=== PATIENT | female | born 1995 | race Caucasian/White ===

== ENCOUNTER 2017-03-16 03:39 | Emergency (ER) | payer MEDICAID ==
--- NOTE | ~2017-03-16 | ER ---
PAT[facility]'S NAME: [facility] AGE: 21 Y [address] ROOM: [place] [id number] LOCATION: [facility] ADMIT DATE: 03/16/2017 ER/Outpatient Report DISCHARGE DATE: 03/16/2017 FAMILY PHYSICIAN: , ZAIRA ATTENDING PHYSICIAN: Eric Bui Time of Arrival: 0341 hours. Time of Evaluation: 0359 hours. CHIEF COMPLAINT: Low back pain. HISTORY OF PRESENT ILLNESS: The patient is a 21-year-old female who presents to the emergency department today with a chief complaint of low back pain. The patient is 25 weeks . She is a G2, P1. She reports that she has not had any complications with the . She reports at 11:00 p.m. last night, she had progressively worsening low back pain. It is on both sides. It does radiate down into both legs. The patient does have a history of sciatic in the left. She did take Flexeril at 12:30 with some mild relief. She denies any fevers or chills. She is having some nausea. No vomiting. Denies any diarrhea or constipation. Denies any vaginal bleeding or vaginal discharge. No burning with urination. No chest pain. No shortness of breath. The patient reports she is out of her Flexeril. PAST MEDICAL HISTORY: None. No history of diabetes or gestational diabetes. PAST SURGICAL HISTORY: None. SOCIAL HISTORY: The patient smokes half pack per day. Denies any alcohol or illicit drug use. ALLERGIES: BACTRIM, SULFA AND NAPROXEN. MEDICATIONS: 1. vitamins. 2. Flexeril. PRIMARY CARE DOCTOR: None. REVIEW OF SYSTEMS: PATIENT'S NAME: CHADWICK, [facility] AGE: 21 Y [address] ROOM: [place], [place] [address] LOCATION: [facility] ADMIT DATE: 03/16/2017 ER/Outpatient Report DISCHARGE DATE: 03/16/2017 FAMILY PHYSICIAN: ZAIRA BETTS ATTENDING PHYSICIAN: Eric Bui All systems are reviewed by myself are negative with the exception of those discussed in the HPI and past medical history. PHYSICAL EXAMINATION: VITAL SIGNS: Weight 68.7 kg. Blood pressure 107/60, pulse 88, respiratory rate 16, temperature 97.6, oxygen saturation 99% on room air. heart tones are 136-142. GENERAL: The patient is a 21-year-old female, well developed, well nourished, in no acute distress. HEENT: Normocephalic, atraumatic. Pupils equal, round, and reactive to light. NECK: Supple. There is no nuchal rigidity. CARDIOVASCULAR: Regular rate and rhythm. No murmurs, rubs, or gallops. LUNGS: Clear to auscultation bilaterally. No wheezes, rales, or rhonchi. ABDOMEN: Soft, gravid. No rebound, rigidity or guarding. Positive bowel sounds. MUSCULOSKELETAL: The patient moves all 4 extremities. She has some bilateral paraspinal musculature tenderness to palpation. SKIN: Warm and dry. LABORATORY DATA AND X-RAYS: Urinalysis are unremarkable except for 5 ketones. IMPRESSION: 1. Acute lumbar back pain suspect musculoskeletal. 2. Initial visit. EMERGENCY DEPARTMENT COURSE: The patient was brought back to the examination room. Seen and evaluated by myself. Urinalysis obtained as described above. It is unremarkable. The patient was given a gram of Tylenol as well as 40 mg of prednisone. I discussed I would like to follow up with primary care doctor in 2-3 days. She does report she plans on following up with [facility]. I have discussed the return to care instructions including loss of bowel or bladder or saddle anesthesia or any other concerns to return to the emergency department as soon as possible. The patient denies having any symptoms at this time. The patient is agreeable and boyfriend is agreeable. They are without further questions at this time. DISPOSITION: The patient discharged home in good condition. PATIENT'S NAME: TEO CHADWICK [facility] AGE: 21 Y [address] ROOM: [place], [place] [address] LOCATION: ED ADMIT DATE: 03/16/2017 ER/Outpatient Report DISCHARGE DATE: 03/16/2017 FAMILY PHYSICIAN: PHYSICIAN, NO ATTENDING PHYSICIAN: Eric Bui DO KJR/jakub /[id number] d: 03/16/17 0447 t: 03/17/17 06, OUTPATIENT REPORT
[2017-03-16 03:53] LABS: BILIRUBIN URINE NEGATIVE (NEGATIVE); BLOOD URINE NEGATIVE /UL (NEGATIVE); COLOR URINE YELLOW (YELLOW); GLUCOSE URINE NEGATIVE (NEGATIVE); KETONE URINE 5 mg/dL (NEGATIVE); LEUKOCYTES URINE NEGATIVE /UL (NEGATIVE); NITRITE URINE NEGATIVE (NEGATIVE); PROTEIN URINE NEGATIVE (NEGATIVE); SPEC GRAVITY URINE 1.005 (1.003-1.035); TURBIDITY URINE CLEAR (CLEAR); UROBILINOGEN URINE NORMAL (NORMAL)
== END 2017-03-16 04:12 | disposition disaster alternative care site (69) ==
LOC: GMED 03:39
PROVIDERS: Emergency Medicine
DX: O99.89 Other specified diseases and conditions complicating pregnancy, childbirth and the puerperium (principal); M54.5 Low back pain; O99.332 Smoking (tobacco) complicating pregnancy, second trimester; F17.210 Nicotine dependence, cigarettes, uncomplicated; Z79.899 Other long term (current) drug therapy; Z88.1 Allergy status to other antibiotic agents; Z88.8 Allergy status to other drugs, medicaments and biological substances; Z88.2 Allergy status to sulfonamides; Z3A.25 25 weeks gestation of pregnancy
CPT/HCPCS: J7512

== ENCOUNTER 2017-04-17 00:10 | Observation (INO) | payer MEDICAID ==
[~2017-04-17] VITALS: Ht 157.5 cm; Wt 67.3 kg
--- NOTE | ~2017-04-17 | HP ---
PATIENT'S NAME: TEO GUTIERRES [facility] AGE: 21 Y [address] ROOM: [place] [address] LOCATION: [facility] ADMIT DATE: 04/17/2017 History & Physical DISCHARGE DATE: 04/17/2017 FAMILY PHYSICIAN: Sascha Prater MD ATTENDING PHYSICIAN: Aydin Adamson DATE OF SERVICE: CHIEF COMPLAINT: "I am having contractions." HISTORY OF PRESENT ILLNESS: Ms. Gutierres is a 21-year-old, G 3, P 1, at 29 and 5/7th weeks gestation, who presents to the Labor and Delivery Unit at [facility] for contractions and lower abdominal pain. 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 She was having some lower abdominal pain that started around 2230 p.m. the night before admission. She states that the pain is in the lower part of her abdomen. It is more on the right side. It does not radiate. She has complained of some contractions as well. No loss of fluid. No bleeding. Baby is still moving. No cough, fevers, chills, or shortness of breath. No nausea, vomiting, or diarrhea. No extremity swelling. No rashes. She has otherwise felt pretty well. REVIEW OF SYSTEMS: Negative except for those noted as above in the HPI. ALLERGIES: NO KNOWN DRUG ALLERGIES. PAST MEDICAL HISTORY: 1. Tobacco abuse. 2. History of induced . PAST SURGICAL HISTORY: Induction of labor resulting in a vaginal delivery. FAMILY HISTORY: Noncontributory. SOCIAL HISTORY: The patient just moved up from [place]. She sees Dr. Sascha Prater as her primary care provider. She smokes about half a pack per day and has done so since age of 14. She reports drinking alcohol prior to , but none since. I asked her about drug use and the patient tells me that her parents have a problem with drugs, but she never has. She does have a significant PATIENT'S NAME: TEO GUTIERRES [facility] AGE: 21 Y [address] ROOM: [place] [address] LOCATION: [facility] ADMIT DATE: 04/17/2017 History & Physical DISCHARGE DATE: 04/17/2017 FAMILY PHYSICIAN: Sascha Prater MD ATTENDING PHYSICIAN: Aydin Adamson other who is with her today. PHYSICAL EXAMINATION: VITAL SIGNS: Reviewed. GENERAL: A pleasant, interactive adult female who does not appear to be in any pain or distress. HEAD: Normocephalic, atraumatic. Eyes, conjunctivae clear. Sclerae white. ENT: Mucous membranes are moist. ABDOMEN: Gravid, soft, nontender, and nondistended. GENITALIA: Hong stage 5. Cervix appears to be normal. There is significant amount of discharge present in the vaginal vault. There does not appear to be any bleeding or significant pooling in the vaginal vault. heart rate is reactive NST. Category 1. There are a few occasional contractions, but they do space out over time. IMPRESSION: A 21-year-old, G3, P1, at 29 and 5/7th weeks gestation with contractions. 1. Contractions. Technically, the patient does not meet criteria for labor as she has not had a cervical change though she did have a cervical exam of 2, posterior -3, 25%. I actually think that this may be little bit more of a cupping of the outer cervix. An initial ultrasound in [place] actually showed a cervical length of 3.8 cm. Today, it is 3.7 cm. Appears to be closed on the official report. The patient does have a grade 3 placenta. Number of other tests including gonorrhea and chlamydia were negative. Urinalysis negative. Urine drug screen was negative. Genital culture as well as group B strep were obtained, but were not yet reported back. Since the patient has a closed cervix on ultrasound, we will go ahead and let her go home. Her contractions ultimately did space out after she received about 2 L of normal saline. We will have her follow up with primary care provider within 5 days. She already has an appointment scheduled on 04/22/2017, which I agree with. 2. Tobacco Abuse. The patient continues to smoke about half a pack per day and does have a grade 3 placenta. Encouraged the patient that she needs to quit. 3. Abdominal pain, likely round ligament pain. We will have her on a work restriction for 15 pounds until she is seen on 04/22/2017. If her job cannot accommodate that will put her off work. 4. Fluids. The patient received 2 L normal saline. Electrolytes not yet checked. 5. Diet. The patient was allowed to be general diet. RECOMMENDATIONS: 1. Followup with Dr. Sascha Prater on 04/22/2016. 2. Quit smoking. PATIENT'S NAME: TEO GUTIERRES [facility] AGE: 21 Y [address] ROOM: [place] [address] LOCATION: [facility] ADMIT DATE: 04/17/2017 History & Physical DISCHARGE DATE: 04/17/2017 FAMILY PHYSICIAN: Sascha Prater MD ATTENDING PHYSICIAN: Aydin Adamson 3. If there is any worsening of condition or repeat contractions, the patient needs to be seen in the Labor and Delivery Unit or the [facility]. AYDIN ADAMSON MD BAB/modl /[id number] P D: [id number] T: [id number] HISTORY & PHYSICAL
[2017-04-17] MEDS ORDERED: PRENATAL 1+1)(P1 TAB PO (00:58)
[2017-04-17] MEDS ORDERED: FLEXERIL10 MG PO (01:01)
[2017-04-17] MEDS ORDERED: ZANTAC (NON-FO150 MG PO (01:02)
[2017-04-17 03:40] LABS: BILIRUBIN URINE NEGATIVE (NEGATIVE); BLOOD URINE NEGATIVE /UL (NEGATIVE); COLOR URINE YELLOW (YELLOW); GLUCOSE URINE NEGATIVE (NEGATIVE); KETONE URINE 5 mg/dL (NEGATIVE); LEUKOCYTES URINE NEGATIVE /UL (NEGATIVE); NITRITE URINE NEGATIVE (NEGATIVE); PROTEIN URINE NEGATIVE (NEGATIVE); UROBILINOGEN URINE NORMAL (NORMAL)
[2017-04-17 03:41] LABS: TURBIDITY URINE CLEAR (CLEAR)
[2017-04-17 03:58] LABS: BARBITURATE NEGATIVE (NEGATIVE); OPIATES NEGATIVE (NEGATIVE)
[2017-04-17 03:59] LABS: AMPHETAMINE NEGATIVE (NEGATIVE); COCAINE NEGATIVE (NEGATIVE)
== END 2017-04-17 11:25 | disposition disaster alternative care site (69) ==
LOC: GOBM 00:10 → GOBS 00:10 → GOBM 00:11 → GOBS 00:11 → GOBM 10:11 → GOBS 10:11 → GOBM 11:25 → GOBS 11:25
PROVIDERS: ADMIT Family Medicine
DX: O60.03 Preterm labor without delivery, third trimester (principal); O99.333 Smoking (tobacco) complicating pregnancy, third trimester; F17.210 Nicotine dependence, cigarettes, uncomplicated; Z3A.29 29 weeks gestation of pregnancy
CPT/HCPCS: G0463; J2001; J7030

== ENCOUNTER 2017-05-13 00:49 | Outpatient (CLI) | payer MEDICAID ==
[~2017-05-13] VITALS: Ht 157.5 cm; Wt 68.1 kg
[~2017-05-13 00:49] MED LIST: FLEXERIL10 MG PO; PRENATAL 1+1)(P1 TAB PO; ZANTAC (NON-FO150 MG PO
[2017-05-13] MEDS ORDERED: ZOFRAN4 MG PO (01:37)
[2017-05-13 01:42] LABS: BILIRUBIN URINE NEGATIVE (NEGATIVE); BLOOD URINE NEGATIVE /UL (NEGATIVE); COLOR URINE YELLOW (YELLOW); GLUCOSE URINE NEGATIVE (NEGATIVE); KETONE URINE NEGATIVE (NEGATIVE); LEUKOCYTES URINE 100 /UL (NEGATIVE); NITRITE URINE NEGATIVE (NEGATIVE); PROTEIN URINE 30 mg/dL (NEGATIVE); TURBIDITY URINE 3+ (CLEAR); UROBILINOGEN URINE 1 mg/dL (NORMAL)
[2017-05-13 01:56] LABS: EPITHELIAL URINE 50-100 #/HPF (NEGATIVE); RBC URINE RARE #/HPF (NEGATIVE); WBC URINE 20-50 #/HPF (NEGATIVE)
[2017-05-13 01:57] LABS: BACTERIA URINE MODERATE (NEGATIVE); CRYSTALS URINE CALCIUM OXALATE (NEGATIVE); MUCUS URINE 1+ (NEGATIVE)
[2017-05-13 02:24] LABS: BILIRUBIN URINE NEGATIVE (NEGATIVE); BLOOD URINE NEGATIVE /UL (NEGATIVE); COLOR URINE YELLOW (YELLOW); GLUCOSE URINE NEGATIVE (NEGATIVE); KETONE URINE NEGATIVE (NEGATIVE); LEUKOCYTES URINE NEGATIVE /UL (NEGATIVE); NITRITE URINE NEGATIVE (NEGATIVE); PH URINE 6.5 (4.0-8.0); PROTEIN URINE NEGATIVE (NEGATIVE); SPEC GRAVITY URINE 1.015 (1.003-1.035); TURBIDITY URINE CLEAR (CLEAR); UROBILINOGEN URINE NORMAL (NORMAL)
== END 2017-05-13 03:00 | disposition disaster alternative care site (69) ==
LOC: GOBM 00:49 → GOBS 00:49 → GOBM 03:00
PROVIDERS: Family Medicine
DX: Z33.1 Pregnant state, incidental (principal)
CPT/HCPCS: G0463; J2405

== ENCOUNTER 2017-05-15 17:04 | Observation (INO) | payer MEDICAID ==
[~2017-05-15] VITALS: Ht 157.5 cm; Wt 66.8 kg
[~2017-05-15 17:04] MED LIST changes: +ZOFRAN4 MG PO
== END 2017-05-15 19:25 | disposition disaster alternative care site (69) ==
LOC: GOBS 17:04
PROVIDERS: ADMIT Family Medicine
DX: O99.283 Endocrine, nutritional and metabolic diseases complicating pregnancy, third trimester (principal); E86.0 Dehydration; O99.89 Other specified diseases and conditions complicating pregnancy, childbirth and the puerperium; R51 Headache; Z3A.33 33 weeks gestation of pregnancy
CPT/HCPCS: G0463; J2405; J7120